=== PATIENT | male | born 1980 | race Caucasian/White ===

== ENCOUNTER 2017-02-11 09:28 | Outpatient (CLI) | payer OTHER | END 2017-02-11 09:29 | disposition critical access hospital (66) | LOC: EMS 09:28 | PROVIDERS: ATTEND Surgery | DX: M54.9 Dorsalgia, unspecified (principal) | CPT/HCPCS: A0425; A0429 ==

== ENCOUNTER 2017-02-11 09:42 | Emergency (ER) | payer OTHER ==
[2017-02-11] MEDS ORDERED: ONDANSETRON 4 MG/2 ML VIAL IVP STA (10:35)
[2017-02-11] MEDS ORDERED: KETOROLAC 60 MG/2 ML VIAL IVP STA (10:35)
[2017-02-11] MEDS ORDERED: HYDROmorphone 1 MG/ML SYRINGE IVP STA (10:35)
[2017-02-11] MEDS ORDERED: ONDANSETRON 4 MG/2 ML VIAL ONE (10:48)
[2017-02-11] MEDS ORDERED: HYDROmorphone 1 MG/ML SYRINGE ONE (10:48)
[2017-02-11] MEDS ORDERED: KETOROLAC 30 MG/ML VIAL ONE (10:48)
[2017-02-11 12:33] LABS: BILIRUBIN,URINE NEGATIVE (NEGATIVE)
[2017-02-11 12:36] LABS: UA CHARGE (STRIP ONLY) YES; UR CULTURE IF IND NOT INDICATED
[2017-02-11] MEDS ORDERED: diazePAM INJ 5 MG/ML SYRINGE IVP STA (12:55)
[2017-02-11] MEDS ORDERED: diazePAM INJ 5 MG/ML SYRINGE ONE (13:03)
[2017-02-11 13:58] VITALS: BP 102/69
--- NOTE | 2017-02-11 14:04 | ED Physician Documentation ---
PD HPI BACK PAIN - Stated complaint Stated Complaint: BACK SPASM - Chief complaint Chief Complaint: Back Pain - History obtained from History obtained from: Patient, Family - History of Present Illness Timing - onset: Today Timing - details: Abrupt onset, Still present Location: Mid, Right Quality: Pain, Spasm Associated symptoms: No: Fever, Weakness, Numbness, Incontinent of urine Worsened by: Movement Similar symptoms before: No diagnosis (Similar symptoms 8 days ago, with resolution after 3 or 4 days.) - Additional information Additional information: The patient is a 36-year-old male who presents with pain and spasm in his right mid to lower back. The pain started suddenly this morning while standing in his kitchen. He denies any recent traumatic injury. He had a similar episode of back pain 8 days ago when running while carrying his son. That pain lasted for 3 or 4 days before resolving spontaneously. The pain this morning began abruptly without any exertional activity or traumatic injury. He denies history of similar symptoms in the past. He denies fever, abdominal pain, nausea, vomiting, dysuria, or incontinence of urine. He denies numbness or weakness. Review of Systems Constitutional: reports: Fever Nose: reports: Congestion Throat: denies: Sore throat Cardiac: denies: Chest pain / pressure Respiratory: denies: Dyspnea, Cough GI: denies: Abdominal Pain, Nausea, Vomiting : denies: Dysuria, Incontinent Skin: denies: Rash Musculoskeletal: reports: Back pain. denies: Neck pain, Extremity pain Neurologic: denies: Focal weakness, Numbness, Headache PD PAST MEDICAL HISTORY - Past Medical History Past Medical History: No Cardiovascular: None Respiratory: None Neuro: None Endocrine/Autoimmune: None Musculoskeletal: None - Past Surgical History Past Surgical History: No - Present Medications Home Medications: Ambulatory Orders Medication Instructions Recorded Confirmed Cyclobenzaprine [Flexeril] 10 mg PO TID PRN #20 tablet 02/11/17 HYDROcod/ACETAM 5/325 [[place] 5/325] 1 - 2 ea PO Q6H PRN #20 tablet 02/11/17 - Allergies Allergies/Adverse Reactions: Allergies Allergy/AdvReac Type Severity Reaction Status Date / Time Penicillins AdvReac Rash Verified 02/11/17 10:55 - Living Situation Living Situation: reports: With family Living Arrangement: reports: At home - Social History Does the pt smoke?: No Smoking Status: Never smoker PD ED PE NORMAL - Vitals Vital signs reviewed: Yes (normal) - General General: Alert and oriented X 3, Well developed/nourished, Other (Grimaces in pain with any movement involving his trunk.) - HEENT HEENT: Atraumatic, EOMI, Pharynx benign - Neck Neck: No bony TTP, No adenopathy, No JVD - Cardiac Cardiac: RRR, No murmur - Respiratory Respiratory: No respiratory distress, Clear bilaterally - Abdomen Abdomen: Soft, Non tender, No organomegaly - Back Back: No spinal TTP, Other (There is tenderness to palpation in the right parathoracic musculature in the lower thoracic upper lumbar region. There is no tenderness to palpation along the spinous processes.) - Derm Derm: No rash - Extremities Extremities: No tenderness to palpate, No edema, No calf tenderness / cord, Other (Straight leg raise test is negative bilaterally.) - Neuro Neuro: Alert and oriented X 3, No motor deficit, No sensory deficit, Other ( Deep tendon reflexes are 2+ and equal bilaterally at the patellar and Achilles tendons.) Results - Vitals Vitals: Oxygen O2 Source Room air - Labs Labs: Laboratory Tests 02/11/17 12:15 Urine Color YELLOW Urine Clarity CLEAR Urine pH 6.0 Ur Specific [place] 1.015 Urine Protein NEGATIVE Urine Glucose (UA) NEGATIVE Urine Ketones NEGATIVE Urine Occult Blood NEGATIVE Urine Nitrite NEGATIVE Urine Bilirubin NEGATIVE Urine Urobilinogen 0.2 (NORMAL) Ur Leukocyte Esterase NEGATIVE Ur Microscopic Review NOT INDICATED Urine Culture Comments NOT INDICATED PD MEDICAL DECISION MAKING - ED course Complexity details: reviewed results, re-evaluated patient, considered differential, d/w patient, d/w family ED course: The patient's presentation is most consistent with musculoskeletal back pain. Renal colic was considered, but with no hematuria and with his pain being much worse with movement of his trunk, kidney stone is unlikely. Treatment in the emergency department included administration of hydromorphone 1 mg IV, ketorolac 30 mg IV, and ondansetron 4 mg IV. Subsequently, because of continued spasms, diazepam 5 mg is administered IV. He is being discharged with prescriptions for Vicodin, 20 tablets, and for Flexeril. I discussed with him and his the expected course of illness, symptomatic treatment and outpatient follow-up, as well as potentially worrisome signs or symptoms that should prompt reevaluation in the emergency department Departure - Departure Disposition: 01 Home, Self Care Clinical Impression: Back pain Qualifiers: Back pain location: thoracic back pain Chronicity: acute Back pain laterality: left Qualified Code(s): M54.6 - Pain in thoracic spine Instructions: ED Low Back Pain Injury Follow-Up: [facility] [Provider Group] Prescriptions: Cyclobenzaprine [Flexeril] 10 mg PO TID PRN #20 tablet PRN Reason: Spasms HYDROcod/ACETAM 5/325 [[place] View 5/325] 1 - 2 ea PO Q6H PRN #20 tablet PRN Reason: Pain Comments: Apply ice pack to your back intermittently for the next 3 or 4 days. You can use ibuprofen, up to 800 mg 3 times daily for its anti-inflammatory effect. You can use Vicodin as prescribed if needed for pain. You can use Flexeril as prescribed if needed for muscle spasms. Follow-up with primary physician within 2 weeks. Call to schedule an appointment. Return to the emergency department if you develop increasing back pain, or otherwise worsening symptoms. Forms: Activity restrictions Discharge Date/Time: 02/11/17 14:40
== END 2017-02-11 14:40 | disposition home or self-care (01) ==
LOC: ED 09:42
DX: M54.6 Pain in thoracic spine (principal)
CPT/HCPCS: 81003; 96374; 96375; 99284; J1170; 81001; 87086

== ENCOUNTER 2018-04-29 13:28 | Emergency (ER) | payer OTHER ==
--- NOTE | 2018-04-29 13:38 | ED Physician Documentation ---
PD HPI SKIN - Stated complaint Stated Complaint: MALE - Chief complaint Chief Complaint: Wound - History obtained from History obtained from: Patient - History of Present Illness Timing - onset: How many weeks ago (couple weeks of some pain in rectal area that has gotten worse in the past few days. No noted drainage. Seen by PMD at [facility]. Referred to ER as seemed large/deep to access.) Timing - duration: Weeks (2) Timing - details: Gradual onset, Still present Location: Other (right perirectal area) Quality / character: Painful, Swelling. No: Discolored, Raised, Draining Associated symptoms: No: Fever, Abd pain, N/V/D Similar symptoms before: Has not had sx before Review of Systems Constitutional: denies: Fever, Chills, Myalgias GI: denies: Abdominal Pain, Nausea, Vomiting, Constipation, Diarrhea : denies: Dysuria PD PAST MEDICAL HISTORY - Past Medical History Past Medical History: No Cardiovascular: None Respiratory: None Endocrine/Autoimmune: None Musculoskeletal: None - Past Surgical History Past Surgical History: No - Present Medications Home Medications: Ambulatory Orders Medication Instructions Recorded Confirmed Metronidazole [Flagyl] 500 mg PO BID #14 tablet 04/29/18 Sulfamethox/Trimeth 800/160 1 each PO BID #14 tablet 04/29/18 [Bactrim Ds 800/160] - Allergies Allergies/Adverse Reactions: Allergies Allergy/AdvReac Type Severity Reaction Status Date / Time Penicillins AdvReac Rash Verified 04/29/18 13:33 - Social History Does the pt smoke?: No Smoking Status: Never smoker Does the pt drink ETOH?: No Does the pt have substance abuse?: No - Immunizations Immunizations are current?: No Immunizations: TDAP >10years/unknown - POLST Patient has POLST: No PD ED PE NORMAL - Vitals Vital signs reviewed: Yes - General General: Alert and oriented X 3, No acute distress, Well developed/nourished - Cardiac Cardiac: RRR, No murmur - Respiratory Respiratory: Clear bilaterally - Abdomen Abdomen: Soft, Non tender - Male Male : Other (tenderness in right perineal area and at right perirectal area but feeling deeper. Tenderness with firmness right perirectal area on digital exam. bedside U/S suggests fluid collection but deeper, and hard to confirm size with the rectal vault shadowing.) Results - Vitals Vitals: Oxygen O2 Source Room air - Rads (name of study) pelvic CT Radiology: Discussed with rads (perirectal abscess 3.5x4.5 cm) PD MEDICAL DECISION MAKING - ED course Complexity details: d/w patient, d/w customer support consultant (Dr. Black to consult regarding I&D approach due to depth and location.), other (Dr. Black came to ER after finishing few patients in the clinic, and performed the I&D procedure as it seemed best approached from intrarectally and I felt it better done by specialist. ) Departure - Departure Disposition: Home, Self Care Clinical Impression: Perirectal abscess Condition: Stable Record reviewed to determine appropriate education?: Yes Instructions: ED Abscess IandD Follow-Up: Cam Black MD [Provider Admit Priv/Credential] - Prescriptions: Metronidazole [Flagyl] 500 mg PO BID #14 tablet Sulfamethox/Trimeth 800/160 [Bactrim Ds 800/160] 1 each PO BID #14 tablet Comments: Lots of fluids. Warm sitting baths to promote drainage once or twice daily to promote drainage. Follow up with Dr. Black office next week, call for an appointment. Discharge Date/Time: 04/29/18 19:12
[2018-04-29] MEDS: KETOROLAC 30 MG/ML VIAL IVP STA (14:09)
[2018-04-29] MEDS: cefTRIAXone 500 MG VIAL IVP STA (14:09)
[2018-04-29] MEDS: metroNIDAZOLE 500 MG/100 ML 500 MG/100 ML BAG IV ONE (14:09)
[2018-04-29] MEDS ORDERED: IOVERSOL 320 100 ML VIAL IVP ONE (14:14)
[2018-04-29] MEDS: IOVERSOL 320 100 ML VIAL IVP ONE (14:40)
--- NOTE | 2018-04-29 15:08 | CT Report ---
Reason: rectal abscess evaluate Procedure Date: 04/29/2018 Accession Number: [id number] / [id number] Procedure: CT - Pelvis W/ CPT Code: FULL RESULT: EXAM: CT PELVIS EXAM DATE: 04/29/2018 02:42 PM. CLINICAL HISTORY: Rectal abscess evaluate. COMPARISONS: None. TECHNIQUE: Routine helical CT imaging was performed through the pelvis. IV contrast: OPTI 320 90 ML. Enteric contrast: No. Reconstructions: Coronal and sagittal. In accordance with CT protocol optimization, one or more of the following dose reduction techniques were utilized for this exam: automated exposure control, adjustment of mA and/or KV based on patient size, or use of iterative reconstructive technique. FINDINGS: Peritoneal Cavity/Bowel: Normal. No free fluid, free air or adenopathy. No masses or acute inflammatory process. Visualized portions of the retrocecal appendix are unremarkable. Pelvic Organs: Bladder, prostate gland, and seminal vesicles are unremarkable. Vasculature: No aneurysms or other significant abnormality. Bones: No significant abnormality. Other: There is an approximately 4.4 x 2.7 x 3.5 cm (AP by transverse by craniocaudal) faintly rim-enhancing lobular fluid collection in the subcutaneous perianal right buttock which abuts the inferior aspect of the anus. There is no fluid collection or fat stranding in the ischiorectal fossa or supralevator space. No gross fluid collection is seen in the intersphincteric space, although this area is not optimally visualized on CT. 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 Anal MRI without and with contrast could be used to further assess if needed. [facility] The call report notification system was initiated by Dr. Marshall Murphy at 02:59 PM on 04/29/2018. The above findings were discussed with Cam Bolaños by Dr. Marshall Murphy at 03:07 PM on 04/29/2018.
[2018-04-29] MEDS: LIDOCAINE MPF 1%-EPI 1:200000 30 ML VIAL SUBQ STA (18:09)
[2018-04-29 19:10] VITALS: BP 132/69
== END 2018-04-29 19:12 | disposition home or self-care (01) ==
LOC: ED 13:28
DX: K61.1 Rectal abscess (principal)
CPT/HCPCS: 72193; 96365; 96375; 99283